=== PATIENT | male | born 1955 | race Caucasian/White ===

== ENCOUNTER 2020-11-03 16:55 | Emergency (ER) | payer BC, SELFPAY ==
[2020-11-03 16:57] VITALS: BP 154/99; PULSE 105; RESP 16; TEMP 36.7; O2SAT 99
[2020-11-03 17:35] VITALS: BP 154/99; PULSE 105; RESP 16; TEMP 36.7; O2SAT 99
--- NOTE | 2020-11-03 18:02 | ED.GENADULT ---
HPI - General Adult General Chief complaint: Recheck/Abnormal Lab/Rx Stated complaint: MED REFILL Time Seen by Provider: 11/03/20 17:36 Source: patient and RN notes reviewed Mode of arrival: ambulatory Limitations: no limitations History of Present Illness HPI narrative: Patient is a 65-year-old male who presents requesting prescription refill for Xarelto patient notes that she drove from [place] today he left his medications at home and is requesting that he have his Suboxone filled which she takes for chronic knee pain patient states that his will be sending the medication overnight patient notes that he also forgot his other medications denies any illness or other complaints and does not present in any distress Related Data Home Medications Medication Instructions Recorded Confirmed amlodipine 11/03/20 buprenorphine-naloxone film 11/03/20 glimepiride mg 11/03/20 losartan 11/03/20 metoprolol succinate PO 11/03/20 rivaroxaban [Xarelto] mg 11/03/20 Review of Systems Review of Systems: All systems reviewed & are unremarkable except as noted in HPI and below PMFSH Past Medical History Medical History (Updated 11/03/20 @ 18:07 by Kadeem Obregon PA-C) Atrial fibrillation Chronic knee pain Surgical History Surgical History (Updated 11/03/20 @ 18:05 by Kadeem Obregon PA-C) History of knee replacement Social History Social History (Updated 11/03/20 @ 18:05 by Kadeem Obregon PA-C) Smoking status: Never smoker Exam Narrative: Exam Narrative: GENERAL: Well-appearing, well-nourished, and in no acute distress. HEAD: Normocephalic, atraumatic. EYES: PERRLA and EOMI. ENT: Nares clear, no rhinorrhea or epistaxis. Mucous membranes moist. CHEST: Clear to auscultation. No respiratory distress. No wheezes rales or rhonchi HEART: Regular rate and rhythm. No murmur heard. Normal peripheral pulses. ABDOMEN: Soft, nontender, nondistended EXTREMITIES: Normal range of motion. No edema. SKIN: Warm, dry, no rash. NEURO: No focal deficits. Alert and oriented x3. PSYCH: Normal mood and affect. Course Course Emergency Course: Patient will be discharged advised to continue with his plan for his to send his medications he is afebrile nontoxic-appearing no distress and felt appropriate for outpatient reevaluation provided with reasons to return asymptomatic at this time with no other complaints Vital Signs Vital signs: Vital Signs Temperature 98.1 F 11/03/20 16:57 Pulse Rate 105 H 11/03/20 16:57 Respiratory Rate 16 11/03/20 16:57 Blood Pressure 154/99 H 11/03/20 16:57 Pulse Oximetry 99 11/03/20 16:57 Temperature 98.1 F 11/03/20 17:35 Pulse Rate 105 H 11/03/20 17:35 Respiratory Rate 16 11/03/20 17:35 Blood Pressure 154/99 H 11/03/20 17:35 Pulse Oximetry 99 11/03/20 17:35 Medical Decision Making MDM Narrative Medical decision making narrative: Patient in the room in no distress aware of case findings treatment plan diagnosis agreeing to follow-up with his primary care and will receive his medications from his who is overnight in the Vital Signs Vital Signs: Vital Signs Temperature 98.1 F 11/03/20 16:57 Pulse Rate 105 H 11/03/20 16:57 Respiratory Rate 16 11/03/20 16:57 Blood Pressure 154/99 H 11/03/20 16:57 Pulse Oximetry 99 11/03/20 16:57 Temperature 98.1 F 11/03/20 17:35 Pulse Rate 105 H 11/03/20 17:35 Respiratory Rate 16 11/03/20 17:35 Blood Pressure 154/99 H 11/03/20 17:35 Pulse Oximetry 99 11/03/20 17:35 Discharge Plan Discharge Clinical Impression: Medication refill Patient Disposition: Home, Self-Care Condition: Stable Instructions: Antibiotic Form, Medicine Refill (ED) Additional Instructions: Follow up with your primary care provider within 1-2 days. Go to ER for shortness of breath, difficulty breathing, chest pain, fever/chills, weakness, nauseau/vomitting, etc. or any other concerns. Only t
== END 2020-11-03 18:16 | disposition home or self-care (01) ==
PROVIDERS: Emergency Provider Emergency Medicine
DX: I48.91 Unspecified atrial fibrillation (principal); Z79.01 Long term (current) use of anticoagulants; M25.569 Pain in unspecified knee; G89.29 Other chronic pain; Z96.659 Presence of unspecified artificial knee joint
CPT/HCPCS: 99281